=== PATIENT | male | born 1980 | race Caucasian/White ===

== ENCOUNTER 2017-01-04 11:31 | Emergency (ER) | payer MEDICAID, OTHER ==
[~2017-01-04] VITALS: Ht 172.7 cm; Wt 85.0 kg
[~2017-01-04 11:31] MED LIST: FENO1TAB76 PO; METH40TA9 PO; [UNRECOGNIZED DRUG - CODE] IM
[2017-01-04 11:42] VITALS: BP 149/76; PULSE 60; RESP 18; TEMP 98.6; O2SAT 98
[2017-01-04] MEDS ORDERED: ALPR.25 PO (11:51)
[2017-01-04] MEDS ORDERED: LIPI10TA PO (11:51)
[2017-01-04] MEDS ORDERED: FENO1TAB46 PO (11:51)
[2017-01-04] MEDS ORDERED: CLON.5 PO (12:18)
--- NOTE | 2017-01-04 12:18 | PD ---
HPI Chief Complaint: Anxiety Time Seen by Provider: 11:54 Travel History International Travel<30 days: No Contact w/Intl Traveler<30days: No Traveled to known affect area: No History of Present Illness HPI This 36-year-old male is complaining of anxiety. He has a history of anxiety and was on Xanax 2 times daily. He was changing doctors and his appointment Back x-rays been out of medication for over a week. He has not been sleeping well. Been very restless. He has been having multiple anxiety attacks PFSH Past Medical History Anxiety: Yes High Cholesterol: Yes Respiratory: Yes (EXCERCISE ASTHMA) Tetanus Vaccination: > 5 Years Influenza Vaccination: Yes Past Surgical History Other Surgery: Yes (VASECTOMY ) Social History Alcohol Use: Yes (occas. mix drinks, beer or wine) Tobacco Use: No (QUIT IN 2011, SMOKED CIGS 1 PPD for 20yrs) Substance Use: No Allergies-Medications (Allergen,Severity, Reaction): Coded Allergies: No Known Allergies (Unverified , 01/04/17) Reported Meds & Prescriptions Reported Meds & Active Scripts Active Reported Xanax (Alprazolam) 0.25 Mg Tab Unknown Dose PO DIRECTED PRN Lipitor (Atorvastatin Calcium) 10 Mg Tab Unknown Dose PO HS Fenofibrate 40 Mg Tab Unknown Dose PO DAILY Review of Systems General / Constitutional: No: Fever, Chills Eyes: No: Diploplia, Blurred Vision HENT: No: Headaches, Vertigo Cardiovascular: No: Chest Pain or Discomfort, Palpitations Respiratory: No: Cough, Shortness of Breath Gastrointestinal: Positive: Nausea Genitourinary: No: Urgency, Frequency Skin: No Rash Neurologic: Positive: Weakness Psychiatric: Positive: Anxiety Hematologic/Lymphatic: No: Easy Bruising Physical Exam Narrative GENERAL: Well-developed male SKIN: Focused skin assessment warm/dry. HEAD: Atraumatic. Normocephalic. EYES: Pupils equal and round. No scleral icterus. No injection or drainage. ENT: No nasal bleeding or discharge. Mucous membranes pink and moist. NECK: Trachea midline. No JVD. CARDIOVASCULAR: Regular rate and rhythm. No murmur appreciated. RESPIRATORY: No accessory muscle use. Clear to auscultation. Breath sounds equal bilaterally. GASTROINTESTINAL: Abdomen soft, non-tender, nondistended. Hepatic and splenic margins not palpable. MUSCULOSKELETAL: No obvious deformities. No clubbing. No cyanosis. No edema. NEUROLOGICAL: Awake and alert. No obvious cranial nerve deficits. Motor grossly within normal limits. Normal speech. PSYCHIATRIC: He does appear to be anxious Data Data Last Documented VS Vital Signs Date Time Temp Pulse Resp B/P (MAP) Pulse Ox O2 Delivery O2 Flow Rate FiO2 01/04/17 11:42 98.6 60 18 149/76 (100) 98 MDM Medical Decision Making Medical Screen Exam Complete: Yes Emergency Medical Condition: Yes Medical Record Reviewed: Yes Differential Diagnosis Differential includes benzodiazepine withdrawal, anxiety Narrative Course I think the patient would be better off on a long-acting benzodiazepine have recommended that we change Xanax to Klonopin. I will prescribe a few days worth of Klonopin until he sees his next doctor. Diagnosis Primary Impression: Anxiety Scripts Clonazepam (Klonopin) 0.5 Mg Tab 0.5 MG PO TID, #30 TAB 0 Refills Prov: Lambert Lancaster MD 01/04/17 Disposition: 01 DISCHARGE HOME Condition: Stable Lambert Lancaster MD Jan 04, 2017 12:18
== END 2017-01-04 12:46 | disposition home or self-care (01) ==
LOC: PHED 11:31
DX: F41.9 Anxiety disorder, unspecified (principal); E78.00 Pure hypercholesterolemia, unspecified; Z86.59 Personal history of other mental and behavioral disorders; Z87.09 Personal history of other diseases of the respiratory system
CPT/HCPCS: 99283